=== PATIENT | male | born 1995 | race Caucasian/White ===

== ENCOUNTER 2016-05-26 18:13 | Emergency (ER) | payer OTHER, MEDICAID ==
[~2016-05-26] VITALS: Ht 185.4 cm; Wt 56.7 kg
[~2016-05-26 18:13] MED LIST: NOMEDS; SILVADENE CREAM50 GM TP; SULFAMETHOXAZOL1 TA6 PO; TYLENOL W/CODEI1 TA2 PO
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
[2016-05-26 18:31] VITALS: BP 139/73
== END 2016-05-26 18:36 ==
LOC: ER 18:13
DX: Z02.89 Encounter for other administrative examinations (principal); S30.1XXA Contusion of abdominal wall, initial encounter; Y04.0XXA Assault by unarmed brawl or fight, initial encounter; Y92.9 Unspecified place or not applicable; Z72.0 Tobacco use

== ENCOUNTER 2016-08-19 17:04 | Emergency (ER) | payer OTHER, MEDICAID ==
[~2016-08-19] VITALS: Ht 185.4 cm; Wt 56.7 kg
[2016-08-19 17:28] LABS: UTC STREP SCREEN NOT DETECTED (NOTDETECTED)
--- NOTE | 2016-08-19 18:10 | Urgent Treatment Center Report ---
History of Present Issue Date/Time Seen by Provider 08/19/16 1800 Visit Reason Pt arrived:Walked Presenting Problem:PT C/O COUGH, RUNNY NOSE, CONGESTION, SORE THROAT, AND FEVER SINCE WEDNESDAY Location if Accident: Onset of symptoms date/time:/ or onset unknown for:MEDICAL HX UNKNOWN Have you (or family members/close friends) recently traveled outside the [place]? N If Yes, where/when: Have you had exposure to infectious disease within the past month? TB? Other? 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 Started father's amoxicillin last night and has had two doses, no improvement. Hx of allergy to PCNs but pt reports he can take amoxicillin and never has reaction. No known sick contacts. Sore throat worse at night and in the morning. Intermittent ear pain, especially on left. Tried cleaning w/ cotton swab but no relief. No drainage. Denies changes to hearing. Source patient Exam Limitations no limitations ALLERGIES Coded Allergies: Penicillins (05/26/16) Home Medications Reported Medications No Known Home Medications History Medical History General CAD? No Angina: No IA: No Hypertension? No Hyperlipidemia? No CHF? No DVT? No PE? No COPD? No Asthma? Yes Anemia? No GERD? No Gastric ulcers? No GI Bleed? No Hernia? No Thyroid Problems? No Hypothyroidism? No CVA? No Seizures? Yes Diabetes? No Renal Insuffiency? No UTI? No Stones? No BPH? No GB Disease: No Nephritic Syndrome? No Asplenia? No Hepatitis? No Sickle Cell Disease? No Arthritis? No Migraines? No Cataracts? No Glaucoma? No MRSA? No HIV? No TB? No Anxiety? No Depression? No Cancer? No More? Yes Additional hx: bipolar disorder Immunization HX DT/Tetanus 1-4 YRS Flu Refused Pneumonia Refuses Surgical Hx Previous Surgery?Y Tonsils Oral Surgery NOSE REPAIR RIGHT GREAT TOE appendectomy Family History Family HX Diabetes Yes CAD No Hypertension No Hyperlipidemia No Cancer No TB No Social History Smoking Hx Smoker: Current Every Day Smoker Tobacco: Yes Type Cigarettes Packs/day < 1 Pack Alcohol Alcohol: Yes Review of Systems All Other Systems Reviewed and Negative Constitutional see HPI Eyes denies drainage ENT see HPI. denies: throat swelling. Respiratory denies shortness of breath, denies wheezing Gastrointestinal denies no symptoms reported Skin denies rash Psychiatric/Neurological denies headache Physical Exam Vital Signs Vital Signs Date Time Temp Pulse Resp B/P Pulse O2 O2 Flow FiO2 Ox Delivery Rate 08/19 1816 99.8 91 18 112/ 100 08/19 1710 99.8 91 18 112/ 100 General Appearance normal appearance, no apparent distress Eye Exam - bilateral eye normal exam Ear, Nose, Throat nasal congestion (mild), pharyngeal erythema, no tonsillar swelling or exudate, right EAC and TM normal, Left TM barely visible due to excessive cerumen. Attempted removal. Pt didn't tolerate due to pain. Cerumen hard and none removed. Superior tip of TM visible appears bright red. Neck non-tender, supple Respiratory Status No: respiratory distress (no cough in clinic). Lung Sounds anterior: lungs clear. posterior: lungs clear. bilateral: lungs clear. Cardiovascular regular rate/rhythm, no peripheral edema, no murmur Neurologic alert Skin normal color, warm/dry Lymphatic no adenopathy (cervical) Medical Decision Making LABS/Meds/Orders Pt receiving controlled substance in ED? No Results/Orders Laboratory Tests 08/19/16 1713: Influenza Type A Ag NOT DETECTED, Influenza Type B Ag NOT DETECTED, Group A Strep Screen NOT DETECTED Orders Procedure Date/time Status [facility] STREP SCREEN 08/19 1712 Complete UTC FLU A,B 08/19 1712 Complete Departure Departure Time of Disposition 180 Disposition DC Home or Self Care(routine) Clinical Impression Primary Impression: Pharyngitis Qualifiers: Pharyngitis/tonsillitis etiology: unspecified etiology Qualified Code: J02.9 - Acute pharyngitis, unspecified Secondary Impressions: Excessive cerumen in left ear canal Left otitis media Qualifiers: Otitis media type: unspecified Chronicity: unspecified Qualified Code: H66.92 - Otitis media, unspecified, left ear Condition STABLE Referrals Misael Stack MD (Family) Follow up IMMEDIATELY for new or worsening symptoms OR no noticeable improvement over the next 48-72 hours. 911 for difficulty breathing. Patient Instructions DI for Cerumen Impaction, DI for Otitis Media (Middle Ear Infection)-Child, DI for Viral Pharyngitis Additional Instructions Red ear Continue amoxicillin. i will call you in your own prescription. You should NOT take other people's prescriptions and you should always finish your antibiotics, even if you feel better. Ear wax Start DEBROX drops over the counter. use 4-7 days then follow up with your primary care for ear irrigation Sore throat * Monitor temp. Tylenol and/or ibuprofen as needed. ER if fever no less than 101 despite alternating tylenol and ibuprofen * Encourage fluids, water, gatorade, powerade, pedialyte if infant/toddler/child * warm salt water gargles * warm fluids * sore throat lozenges * sleep elevated Discharge Counseling Counseled pt/family regarding diagnosis, test results, medications/RX, home care, follow up needs Prescriptions Current Visit Scripts AMOXICILLIN (Amoxicillin 875MG Tab) 875 MG PO BID #18 TAB already took two of father's, PCN allergy but can take amoxicillin at 5680
[2016-08-19 18:16] VITALS: BP 112/67
[2016-08-19] MEDS ORDERED: AMOXICILLIN875 MG PO (18:17)
== END 2016-08-19 18:18 | disposition home or self-care (01) ==
LOC: UTC 17:04
PROVIDERS: Nurse Practitioner Family
DX: J02.9 Acute pharyngitis, unspecified (principal); H61.22 Impacted cerumen, left ear; H66.92 Otitis media, unspecified, left ear

== ENCOUNTER 2016-11-09 05:39 | Emergency (ER) | payer OTHER, MEDICAID ==
[~2016-11-09] VITALS: Ht 185.4 cm; Wt 54.4 kg
[~2016-11-09 05:39] MED LIST changes: +AMOXICILLIN875 MG PO
--- OUTSIDE RECORDS SUMMARY | 2016-11-09 06:02 | External Medical Summary Rpt ---
Author Author , Organization [employer] Address Unknown Phone Unavailable Care Team Providers Care Mold Closer Name Role Phone STEPHANIE BROWN JR, JR Unavailable Unavailable LON FORREST Unavailable Unavailable CHAD BONILLA Unavailable Unavailable [facility] Un[facility] INC, [facility], Unavailable Unavailable [facility] Unavailable Unavailable [facility] Unavailable [facility]available [facility] Unavailable Unavailable [facility], Unavailable Unavailable PLL[facility], [facility] Purpose Continuity of Care Document - 04-18-2016 through 2016 Problems Code Diagnosis DOS Provider Status [id number] CONTUSION 05-26-2016 [facility] ABDOMINAL INC WALL INITIAL ENCOUNTER Z0289 ENCOUNTER 05-26-2016 [facility] FOR OTHER [facility] ADMINISTRAT INC FLORENCIA EXAMINATION S Z720 TOBACCO USE 05-26-2016 [facility] INC K3580 UNSPECIFIED 05-20-2016 [facility] APPENDICITI S K37 UNSPECIFIED 05-19-2016 [facility] APPENDICITI GROUP S K598 OTHER 05-19-2016 [place] SPECIFIED [facility]ICAL FUNCTIONAL [facility]ING [facility] INTESTINAL DISORDERS R1031 RIGHT LOWER 05-19-2016 [place] [facility] [id number] CONTUSION 04-18-2016 [facility] INITIAL ENCOUNTER [id number] UNSPECIFIED 04-18-2016 [place] INJURY RT MEDICAL WRIST HAND IMAGING ASS FINGERS INITIAL Procedures Procedure DOS Code Location Performer Comment LAPAROSCO 15642 [facility] STEPHANIE SHAW PIC 7 PHYSICIAN APPENDECT S GROUP ONI LEVEL III 61277 [facility] 7 LLC LLC PATHOLOGY GROSS&ROSA ROSCOPIC EXAM FINAL G9551 [place] LON REPR ABD 7 MEDICAL IMAG STS IMAGING W/O ASS INCIDNT FND LES NTD: INITIAL 70171 [facility] STEPHANIE SHAW OBSERVATI 7 PHYSICIAN ON S GROUP CARE/DAY 50 MINUTES BLOOD 23177 [facility] COUNT 7 [facility] COMPLETE INC INC AUTO&AUTO DIFRNTL WBC URNLS DIP 94215 [facility] 7 [facility] STICK/TAB INC [place] [address] [facility] ABDOMEN & 7 [facility] PELVIS INC INC W/CONTRAS T MATERIAL THERAPEUT 31907 [facility] IC 7 [facility] INJECTION INC INC IV PUSH EACH NEW DRUG COLLECTIO 72823 [facility] N VENOUS 7 [facility] BLOOD INC INC VENIPUNCT URE COMPREHEN 57960 [facility] SIVE 7 [facility] [place] [address] [facility] AMYLASE 7 [facility] G0378 [facility] OBSERVATI 7 [facility] [place] [address] [facility] LIPASE 7 [facility] INC INC FINAL G9638 [place] LON REPORTS 7 MEDICAL W/O DOC IMAGING 1/MORE ASS DOSE REDUCTION TECH RADEX 47417 [facility] HAND 6 [facility] MINIMUM 3 INC INC VIEWS Encounters Encounter Start End Date Code Location Performer Type Date [facility] Flores 7 [facility] 87182 [facility] 7 7 [facility] INC T VISIT LOW/MODER SEVERITY EMERGENCY 25665 [facility] 7 7 [facility] INC T VISIT HIGH/URGE NT SEVERITY HOSPITAL MAN[facility] Mireles 7 7 [facility] OUTPATIEN INC T EMERGENCY 73870 [facility] BONILLA 6 6 PHYSICIAN DEPARTMEN S, [facility] T VISIT MODERATE SEVERITY HOSPITAL MAN[facility] Mireles 6 6 [facility] OUTPATIEN INC T EMERGENCY 70201 [facility] 6 6 [facility] INC T VISIT LIMITED/M INOR PROB
--- OUTSIDE RECORDS SUMMARY | 2016-11-09 06:02 | External Medical Summary Rpt ---
Author Author JAMESON Snyder, JAMESON Snyder Organization [employer] Address Unknown Phone Unavailable
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
--- OUTSIDE RECORDS SUMMARY | 2016-11-09 06:02 | External Medical Summary Rpt ---
Demographics Preferred Language Albanian Marital Status Unknown Confucianism Affiliation Unknown Race Unknown Ethnic Group Unknown Author Author , Organization [employer] Address Unknown Phone Unavailable Purpose Continuity of Care Document - through 2016 Immunization No patient found.
--- OUTSIDE RECORDS SUMMARY | 2016-11-09 06:02 | External Medical Summary Rpt ---
Author Author , Organization [employer] Address Unknown Phone Unavailable Care Team Providers Care It Director Name Role Phone STEPHANIE SHAW, STEPHANIE SHAW Unavailable Unavailable LON FORREST Unavailable Unavailable CHAD BONILLA Unavailable Unavailable [facility] Unavailable Unavailable INC, [facility], Unavailable Unavailable [facility] Unavailable Unavailable [facility], [facility] Unavailable [facility] Unavailable Un[facility], Unavailable Unavailable PLLC, [facility] Purpose Continuity of Care Document - 04-18-2016 through 2016 Problems Code Diagnosis DOS Provider Status [id number] CONTUSION 05-26-2016 [facility] ABDOMINAL INC WALL INITIAL ENCOUNTER Z0289 ENCOUNTER 05-26-2016 [facility] FOR OTHER [facility] ADMINISTRAT INC FLORENCIA EXAMINATION S Z720 TOBACCO USE 05-26-2016 [facility] INC K3580 UNSPECIFIED 05-20-2016 [facility] APPENDICITI S K37 UNSPECIFIED 05-19-2016 [facility] APPENDICITI GROUP S K598 OTHER 05-19-2016 [place] SPECIFIED [facility] FUNCTIONAL IMAGING ASS INTESTINAL DISORDERS R1031 RIGHT LOWER 05-19-2016 [place] [facility] [id number] CONTUSION 04-18-2016 [facility] INITIAL ENCOUNTER W8808NP UNSPECIFIED 04-18-2016 [place] INJURY RT MEDICAL WRIST HAND IMAGING ASS [...] DOS Code Location Performer Comment LEVEL III 66097 [facility]G 7 [facility] PATHOLOGY GROSS&ROSA ROSCOPIC EXAM LAPAROSCO 44155 [facility] STEPHANIE SHAW PIC 7 PHYSICIAN APPENDECT S GROUP ONI FINAL G9638 ISMAEL FORREST REPORTS 7 MEDICAL W/O DOC IMAGING 1/MORE ASS DOSE REDUCTION [facility] G0378 [facility] OBSERVATI 7 [facility] [place] [place] [facility] [place] [address] [facility] AMYLASE 7 [facility] INC INC COMPREHEN 93443 [facility] SIVE 7 [facility] [place] [place] [facility] METABOLIC INC INC PANEL COLLECTIO 57211 [facility] N VENOUS 7 [facility] [place] [place] [facility] [place] [place] [facility] BLOOD INC INC VENIPUNCT URE INITIAL 26116 [facility] STEPHANIE SHAW OBSERVATI 7 PHYSICIAN ON S GROUP CARE/DAY 50 MINUTES FINAL G9551 SUJATASybil LON REPR ABD 7 MEDICAL IMAG STS IMAGING W/O ASS INCIDNT FND LES NTD: THERAPEUT 98250 [facility] IC 7 [facility] [place] [place] [facility] [place] [place] [facility] INJECTION INC [place] [address] [facility] ABDOMEN & 7 [facility] PELVIS INC INC W/CONTRAS T MATERIAL URNLS DIP 01252 [facility] 7 [facility] [place] [place] [facility] STICK/TAB INC INC LET REAGENT AUTO MICROSCOP Y BLOOD 94377 [facility] COUNT 7 [facility] [place] [place] [facility] COMPLETE INC INC AUTO&[place] [address] [facility] LIPASE 7 [facility] INC INC RADEX 61349 ISMAEL FORREST HAND 6 MEDICAL MINIMUM 3 IMAGING VIEWS ASS Encounters Encounter Start End Date Code Location Performer Type Date EMERGENCY 82689 MAN[facility] 7 7 [facility] T VISIT LOW/MODER SEVERITY HOSPITAL [facility] Mireles 7 7 [facility] [address] [facility] EMERGENCY 11108 MANSI 7 7 [facility] T VISIT HIGH/URGE NT SEVERITY HOSPITAL MANSI - [address] [facility] EMERGENCY 45882 CESARIO BONILLA 6 6 PHYSICIAN [facility] S [facility] T VISIT MODERATE SEVERITY EMERGENCY 29622 MAN[facility] 6 6 [facility] T VISIT LIMITED/M INOR PROB
--- OUTSIDE RECORDS SUMMARY | 2016-11-09 06:02 | External Medical Summary Rpt ---
Demographics Preferred Language Mexican Marital Status Unknown Pentecostal Affiliation Unknown Race Unknown Ethnic Group Unknown Author Author , Organization [employer] Address Unknown Phone Unavailable Purpose Continuity of Care Document - through 2016 Immunization No patient found.
--- OUTSIDE RECORDS SUMMARY | 2016-11-09 06:02 | External Medical Summary Rpt ---
Author Author , Organization [employer] Address Unknown Phone Unavailable Care Team Providers Care Utility Bill Collector Name Role Phone STEPHANIE BROWN JR, JR Unavailable Unavailable LON FORREST Unavailable Unavailable CHAD BONILLA Unavailable Unavailable [facility] Un[facility], [facility], Unavailable Unavailable [facility] [place] [facility] Un[facility] Unavailable [facility] Unavailable [facility]available [facility], Un[facility]available [facility], [facility] Purpose Continuity of Care Document - 04-18-2016 through 2016 Problems Code Diagnosis DOS Provider Status [id number] CONTUSION 05-26-2016 [facility] ABDOMINAL INC WALL INITIAL ENCOUNTER Z0289 ENCOUNTER 05-26-2016 [facility] FOR OTHER [facility] ADMINISTRAT INC FLORENCIA EXAMINATION S Z720 TOBACCO USE 05-26-2016 [facility] INC K3580 UNSPECIFIED 05-20-2016 [facility] APPENDICITI S K37 UNSPECIFIED 05-19-2016 [facility] APP[facility]IC[facility] S K598 OTHER 05-19-2016 [place] SPECIFIED [facility] INTESTINAL DISORDERS R1031 RIGHT LOWER 05-19-2016 [place] [facility] [id number] CONTUSION 04-18-2016 [facility] INITIAL ENCOUNTER [id number] UNSPECIFIED 04-18-2016 [place] INJURY RT MEDICAL WRIST HAND [facility] FINGERS INITIAL Procedures Procedure DOS Code Location Performer Comment [facility] [address] [facility] STEPH[facility] PIC 7 PHYSICIAN APPENDECT S GROUP ONI LEVEL III 96014 [facility] PATHOLOGY GROSS&ROSA ROSCOPIC EXAM FINAL G9551 [place] LON REPR ABD 7 MEDICAL IMAG STS IMAGING W/O ASS INCIDNT FND LES NTD: INITIAL 25767 [facility] STE[facility] OBSERVATI 7 PHYSICIAN ON S GROUP CARE/DAY 50 MINUTES BLOOD 43689 [facility] COUNT 7 [facility] COMPLETE INC INC AUTO&AUTO DIFRNTL WBC URNLS DIP 89733 [facility] 7 [facility] STICK/TAB [place] [address] [facility] ABDOMEN & 7 [facility] PELVIS INC INC W/CONTRAS T MATERIAL THERAPEUT 84748 [facility] IC 7 [facility] INJECTION INC INC IV PUSH EACH NEW DRUG COLLECTIO 27958 [facility] N VENOUS 7 [facility] BLOOD INC INC VENIPUNCT URE COMPREHEN 81233 [facility] SIVE 7 [facility] [place] [address] [facility] AMYLASE 7 [facility] G0378 [facility] OBSERVATI 7 [facility] [place] [address] [facility] LIPASE 7 [facility] INC INC FINAL G9638 [place] LON REPORTS 7 MEDICAL W/O DOC IMAGING 1/MORE ASS DOSE REDUCTION TECH RADEX 04889 [facility] HAND 6 [facility] MINIMUM 3 INC INC VIEWS Encounters Encounter Start End Date Code Location Performer Type Date [facility] Flores 7 [facility] 7 7 [facility] INC T VISIT LOW/MODER SEVERITY EMERGENCY 76055 [facility] 7 7 [facility] INC T VISIT HIGH/URGE NT SEVERITY HOSPITAL [facility] Mireles 7 7 [facility] OUTPATIEN INC T EMERGENCY 41888 [facility] 6 6 PHYSICIAN DEPARTMEN S, [facility] T VISIT MODERATE SEVERITY HOSPITAL [facility] Mireles 6 6 [facility] OUTPATIEN INC T EMERGENCY 48114 [facility] 6 6 [facility] T VISIT LIMITED/M INOR PROB
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
[2016-11-09 06:38] VITALS: BP 136/82
== END 2016-11-09 06:42 ==
LOC: ER 05:39
DX: Z02.89 Encounter for other administrative examinations (principal); F10.10 Alcohol abuse, uncomplicated